=== PATIENT | male | born 1990 | race Two or more races ===

== ENCOUNTER → 2019-10-29 | Outpatient (CLI) | payer OTHER | END | disposition home or self-care (01) | LOC: PPH VACUNA 09:00 | DX: Z23 Encounter for immunization (principal) ==

== ENCOUNTER 2019-12-02 15:27 | Outpatient (CLI) | payer OTHER | END 2019-12-02 18:00 | disposition home or self-care (01) | LOC: LAB 15:27 | DX: Z20.828 Contact with and (suspected) exposure to other viral communicable diseases (principal) ==

== ENCOUNTER 2020-01-08 12:53 | Outpatient (CLI) | payer OTHER | END 2020-01-08 15:00 | disposition home or self-care (01) | LOC: LAB 12:53 | DX: Z20.828 Contact with and (suspected) exposure to other viral communicable diseases (principal) ==

== ENCOUNTER 2020-02-10 15:26 | Outpatient (CLI) | payer OTHER | END 2020-02-10 18:00 | disposition home or self-care (01) | LOC: PPH VACUNA 15:26 | DX: Z23 Encounter for immunization (principal) ==

== ENCOUNTER 2020-08-03 13:59 | Outpatient (CLI) | payer OTHER | END 2020-08-03 14:20 | disposition home or self-care (01) | LOC: LAB 13:59 | PROVIDERS: ATTEND Internal Medicine Pulmonary Disease | DX: J11.1 Influenza due to unidentified influenza virus with other respiratory manifestations (principal); R06.02 Shortness of breath; R05 Cough; Z20.828 Contact with and (suspected) exposure to other viral communicable diseases; D49.3 Neoplasm of unspecified behavior of breast ==